=== PATIENT | female | born 1965 | race Caucasian/White ===

== ENCOUNTER 2021-12-08 07:05 | Emergency (ER) | payer OTHER ==
[~2021-12-08] VITALS: Ht 165.1 cm; Wt 59.0 kg
[2021-12-08] MEDS ORDERED: FURO20 PO (07:35)
[2021-12-08] MEDS ORDERED: ALDACTONE100 MG PO (07:35)
[2021-12-08] MEDS ORDERED: ATOR10 PO (07:35)
[2021-12-08] MEDS ORDERED: SERT25 PO (07:36)
[2021-12-08] MEDS ORDERED: ONDA4 PO (07:36)
[2021-12-08] MEDS ORDERED: POTCHL20ER PO (07:36)
[2021-12-08] MEDS ORDERED: TRAM50 PO (07:36)
[2021-12-08] MEDS ORDERED: ZINC15 PO (07:37)
[2021-12-08] MEDS ORDERED: LACT10SY PO (07:37)
[2021-12-08 07:51] LABS: BASOPHILS ABSOLUTE AUTO 0.03 K/mm3 (0.00-0.23); BASOPHILS PERCENT AUTO 1 % (0-2); EOSINOPHILS ABSOLUTE AUTO 0.09 K/mm3 (0.00-0.68); EOSINOPHILS PERCENT AUTO 3 % (0-6); Hematocrit 33.7 % (33.0-51.0); Hemoglobin 10.5 g/dL (11.5-16.0); IMMATURE GRAN PERCENT AUTO 0 % (0-1); LYMPHOCYTES PERCENT AUTO 47 % (21-46); MONOCYTES ABSOLUTE AUTO 0.35 K/mm3 (0.16-1.47); MONOCYTES PERCENT AUTO 10 % (4-13); Mean Corpuscular HGB 29.7 pg (26.0-34.0); Mean Corpuscular HGB Conc 31.2 g/dL (31.5-36.5); Mean Corpuscular Volume 96 fL (80-100); Mean Platelet Volume 9.2 fL (9.1-12.4); NEUTROPHILS ABSOLUTE AUTO 1.48 K/mm3 (1.96-9.15); NEUTROPHILS PERCENT AUTO 41 % (41-73); Platelet Count 154 K/mm3 (150-400); RDW Coefficient Variation 15.6 % (11.7-14.2); Red Blood Cell Count 3.53 M/mm3 (3.80-5.20); White Blood Cell Count 3.65 K/mm3 (4.00-11.30)
[2021-12-08 08:03] LABS: International Normalized Ratio 1.09; Prothrombin Time Results 11.4 Sec (9.7-11.5)
== END 2021-12-08 08:10 | disposition home or self-care (01) ==
LOC: ER 07:05
PROVIDERS: Emergency Medicine
DX: R18.8 Other ascites (principal); Z01.812 Encounter for preprocedural laboratory examination
CPT/HCPCS: 36415; 85025; 85610; 85730; 99282

== ENCOUNTER 2021-12-08 10:13 | Day surgery (SDC) | payer OTHER ==
[~2021-12-08 10:13] MED LIST: ALDACTONE100 MG PO; ATOR10 PO; FURO20 PO; LACT10SY PO; ONDA4 PO; POTCHL20ER PO; SERT25 PO; TRAM50 PO; ZINC15 PO
== END 2021-12-08 22:58 | disposition home or self-care (01) ==
LOC: US 10:13
DX: R18.8 Other ascites (principal); K74.60 Unspecified cirrhosis of liver
CPT/HCPCS: 49083

== ENCOUNTER 2021-12-21 11:59 | Emergency (ER) | payer OTHER ==
[~2021-12-21] VITALS: Ht 165.1 cm; Wt 59.0 kg
== END 2021-12-21 16:58 | disposition home or self-care (01) ==
LOC: ER 11:59
DX: R18.8 Other ascites (principal); Z79.899 Other long term (current) drug therapy; Z88.8 Allergy status to other drugs, medicaments and biological substances
CPT/HCPCS: 49083; 96365; 96365-59; 96366; 99284-25; P9041; P9046